=== PATIENT | male | born 1970 | race Hispanic/Latino ===

== ENCOUNTER 2018-07-02 20:59 | Emergency (ER) | payer BC ==
[~2018-07-02] VITALS: Ht 177.8 cm; Wt 84.8 kg
[2018-07-02 21:32] LABS: CLARITY,URINE CLEAR (CLEAR); COLOR,URINE YELLOW (YELLOW); LEUKOCYTE ESTERASE ,URINE NEGATIVE (NEGATIVE); NITRITE,URINE NEGATIVE (NEGATIVE); PROTEIN,URINE DIPSTICK NEGATIVE (NEGATIVE)
[2018-07-02 21:33] LABS: BILIRUBIN,URINE NEGATIVE (NEGATIVE); KETONES,URINE NEGATIVE (NEGATIVE); URINE UROBILINOGEN 1 mg/dL (0.2 - 1)
[2018-07-02 21:35] LABS: MUCUS,URINE FEW (RARE); RBC,URINE 0-5 /HPF (0-5); WBC,URINE (MAN) 0-5 /HPF (0-5)
--- NOTE | 2018-07-02 23:17 | Diagnostic Imaging Report ---
Exam: US TESTICULAR [facility], TESTICULAR Clinical History: Pain, swelling on the left Technique: Sonographic evaluation of the testicles using grayscale and color Doppler. Findings. Both testes are normal in echogenicity and size without intratesticular mass. Note is made of a nonspecific echogenic 1 x 2 mm focus in the left testicle, possibly a microlith/calcification. The right testes measures 4.1 x 1.9 x 2.7 cm and the left testes measures 4.0 x 1.7 x 2.4 cm. Symmetric arterial and venous flow is documented to bilateral testicles. Small left hydrocele with internal echoes suggesting some degree of complexity. No right hydrocele. No varicocele. Incidental 3 mm left abdominal head cyst or spermatocele; otherwise both epididymides are normal in appearance. Impression: 1. No evidence of torsion or abdomen orchitis. 2. Small minimally complex left hydrocele. Signed by: Dr Alice Jackson MD on 07/02/2018 11:13 PM
[2018-07-02 23:25] VITALS: BP 132/92
== END 2018-07-02 23:38 | disposition home or self-care (01) ==
LOC: ER 20:59
DX: N50.812 Left testicular pain (principal); N43.3 Hydrocele, unspecified
CPT/HCPCS: 76870; 81001; 93976; 99283